=== PATIENT | male | born 1995 | race Two or more races ===

== ENCOUNTER → 2020-12-23 | Outpatient (CLI) | payer BC ==
--- NOTE | 2020-12-23 15:39 | KCIC ---
Exam Date: 12/23/2020 10:15 AM MRI OF RIGHT UPPER EXTREMITY WITHOUT CONTRAST Indication: Reason: Stener lesion, Rt thumb pain / Spl. Instructions: / History: Injured playing bas ketball a few months ago.. TECHNIQUE: Multiplanar MR imaging of the right hand/thumb was performed without intravenous contrast. The [id number] was narrowed and the planes were oriented to evaluate the thumb. FINDINGS: At the first MCP joint, the distal ulnar collateral ligament is torn, without significant displacemen t of the torn ligament. The ulnar collateral ligament remains deep to the adductor aponeurosis withou t evidence for a Stener lesion. The proximal radial collateral ligament demonstrates abnormal increas ed signal with a small fluid cleft attachment consistent with at least a partial tear. There is marro w edema in the first metacarpal head consistent with bone contusion. There is soft tissue edema aroun d the first MCP joint consistent with soft tissue contusion. Visualized flexor and extensor tendons are within normal limits. Visualized muscles demonstrate trevin l signal and bulk. IMPRESSION: At the first MCP joint, there is a complete tear of the distal ulnar collateral ligament without sign ificant displacement of the torn ligament or evidence for a Stener lesion. There is at least a partial tear of the proximal radial collateral ligament. There is a bone contusion in the first metacarpal head with surrounding soft tissue contusion. Electronically signed by: Mike Blake MD (12/23/2020 3:37 PM) [id number]
== END ==
LOC: KCIC MRI 10:04
PROVIDERS: ATTEND Orthopaedic Surgery Sports Medicine
DX: S63.641A Sprain of metacarpophalangeal joint of right thumb, initial encounter (principal); X58.XXXA Exposure to other specified factors, initial encounter; Y93.89 Activity, other specified; Y92.89 Other specified places as the place of occurrence of the external cause; Y99.8 Other external cause status
CPT/HCPCS: 73218